=== PATIENT | female | born 1950 | race Two or more races ===

== ENCOUNTER 2021-01-25 14:11 | Inpatient (IN) | payer MEDICARE, OTHER ==
[~2021-01-25] VITALS: Ht 172.7 cm; Wt 52.4 kg
[2021-01-25] MEDS ORDERED: SODIUM CHLORIDE 0.9% 1,000 ML IV ONE (16:45)
[2021-01-25] MEDS ORDERED: MORPHINE SULFATE INJECTION 2 MG/ML SYRG IV ONE (16:45)
[2021-01-25] MEDS ORDERED: ONDANSETRON HCL 4 MG/2 ML VIAL IV ONE (16:45)
[2021-01-25 16:55] LABS: Basophils # (auto) 0.1 10 ^3/uL (0-0.2); Eosinophils # (auto) 0 10 ^3/uL (0-0.8); Eosinophils % (auto) 0.2 % (0.0-7.0); Lymphocytes # (auto) 1.6 10 ^3/uL (0.4-5.4); Monocytes # (auto) 0.8 10 ^3/uL (0-1.3)
[2021-01-25 16:57] LABS: Hematocrit 49.6 % (36.0-46.0); Hemoglobin 16.7 g/dL (12.2-16.2); Lymphocytes % (auto) 12.4 % (10.0-50.0); Mean Corpuscular Hemoglobin 38.5 pg (28.0-32.0); Mean Corpuscular Hgb Conc. 33.6 g/dL (32.0-36.0); Mean Corpuscular Volume 114.6 fL (80.0-100.0); Monocytes % (auto) 6.2 % (0.0-12.0); Neutrophils # (auto) 10.4 10 ^3/uL (1.6-8.6); Neutrophils % (auto) 80.2 % (37.0-80.0); Red Blood Cells 4.33 10^6/uL (4.0-5.20); Red Cell Distribution Width 16.5 % (11.8-14.3); White Blood Cell 12.9 10^3/uL (4.4-10.8)
[2021-01-25 17:14] LABS: INR 1.04 (0.9-1.15); Partial Thromboplastin Time 30.2 sec (23.6-33.0)
[2021-01-25 17:21] LABS: Magnesium 2.1 mg/dL (1.6-2.6); Potassium 3.3 mmol/L (3.5-5.1)
[2021-01-25 17:23] LABS: Bilirubin, Total 0.5 mg/dL (0.2-1.0); Total Protein 8.5 g/dL (6.4-8.2)
[2021-01-25] MEDS ORDERED: POTASSIUM CHL 20 Meq TABLET PO ONE (21:00)
[2021-01-25] MEDS ORDERED: MORPHINE SULFATE INJECTION 2 MG/ML SYRG IV PRN (21:00)
[2021-01-25] MEDS ORDERED: ONDANSETRON HCL 4 MG/2 ML VIAL IV PRN (21:00)
[2021-01-25] MEDS ORDERED: ACETAMINOPHEN 325 MG TAB PO PRN (21:00)
[2021-01-25] MEDS ORDERED: fentaNYL CITRATE 100 MCG/2 ML VL IV ONE (21:15)
[2021-01-25] MEDS ORDERED: TEMAZEPAM 15 MG CAP PO PRN (22:00)
[2021-01-26] VITALS (7 sets, daily range): BP systolic 90–134; BP diastolic 45–76
[2021-01-26] MEDS ORDERED: KETOROLAC TROMETH 30 MG/ML 1ML VIAL IV ONE (01:45)
[2021-01-26] MEDS: HYDROcodone-ACET 5/325MG TAB PO PRN ×3 (02:46→13:29)
[2021-01-26 07:24] LABS: Mean Corpuscular Volume 115.5 fL (80.0-100.0); Monocytes # (auto) 0.9 10 ^3/uL (0-1.3)
[2021-01-26 07:25] LABS: Basophils # (auto) 0.2 10 ^3/uL (0-0.2); Basophils % (auto) 1.5 % (0.0-2.0); Eosinophils # (auto) 0.1 10 ^3/uL (0-0.8); Eosinophils % (auto) 1.3 % (0.0-7.0); Hematocrit 40.4 % (36.0-46.0); Lymphocytes % (auto) 17.3 % (10.0-50.0); Mean Corpuscular Hemoglobin 39.9 pg (28.0-32.0); Mean Corpuscular Hgb Conc. 34.6 g/dL (32.0-36.0); Monocytes % (auto) 7.7 % (0.0-12.0); Neutrophils # (auto) 8.3 10 ^3/uL (1.6-8.6); Neutrophils % (auto) 72.2 % (37.0-80.0); Red Cell Distribution Width 16.4 % (11.8-14.3); White Blood Cell 11.5 10^3/uL (4.4-10.8)
[2021-01-26 07:29] LABS: Urine Bacteria NONE SEEN /hpf (None Seen); Urine Blood Negative /uL (Negative); Urine Hyaline Cast FEW /lpf (0 - 2); Urine Mucus FEW (None Seen); Urine Specific Gravity 1.022 (1.001-1.035); Urine WBC 2 /hpf (0 - 5)
[2021-01-26] MEDS ORDERED: CHOL20007 PO (07:46)
[2021-01-26] MEDS ORDERED: CYA100I PO (07:46)
[2021-01-26 07:51] LABS: Potassium 4.8 mmol/L (3.5-5.1)
[2021-01-26 07:57] LABS: BUN/Creatinine Ratio 26.5; Calcium 8.5 mg/dL (8.5-10.1)
[2021-01-26] MEDS: PANTOPRAZOLE 40 MG TAB PO SCH (09:38)
[2021-01-26] MEDS ORDERED: LORazepam 2MG/ML-1ML VIAL IV PRN (10:45)
[2021-01-26] MEDS ORDERED: NICOTINE 21MG/24 HR TOPICAL PATCH TD ONE (10:45)
[2021-01-26] MEDS ORDERED: LEVO25TA6 PO (14:41)
[2021-01-26] MEDS: HYDROmorphone HCL 2 MG/ML VL IV PRN ×2 (16:04→22:49)
[2021-01-27] VITALS (9 sets, daily range): BP systolic 85–105; BP diastolic 43–63
[2021-01-27] MEDS: HYDROmorphone HCL 2 MG/ML VL IV PRN ×3 (06:04→22:50)
[2021-01-27] MEDS: HYDROcodone-ACET 5/325MG TAB PO PRN (07:56)
[2021-01-27] MEDS ORDERED: SODIUM CHLORIDE 0.9% 1,000 ML IV ONE (09:00)
[2021-01-27] MEDS: PANTOPRAZOLE 40 MG TAB PO SCH (10:00)
[2021-01-27] MEDS: NICOTINE 21MG/24 HR TOPICAL PATCH TD SCH (11:30)
[2021-01-27] MEDS ORDERED: MIDAZOLAM HCL 2MG/2ML 2ml VIAL (1mg/ml) ONE (13:43)
[2021-01-27] MEDS ORDERED: MORPHINE SULF(PF) 0.5MG/ML 10ML VIAL ONE (13:43)
[2021-01-27] MEDS ORDERED: fentaNYL CITRATE 100 MCG/2 ML VL ONE (13:43)
[2021-01-27] MEDS ORDERED: ePHEDrine SULFATE 50 MG/ML AMP ONE (13:45)
[2021-01-27] MEDS ORDERED: ONDANSETRON HCL 4 MG/2 ML VIAL ONE (13:45)
[2021-01-27] MEDS ORDERED: PROPOFOL 10 MG/ML 20 ML IV ONE (13:45)
[2021-01-27] MEDS ORDERED: GLYCOPYRROLATE 0.2 MG/ML 1ML VIAL ONE (13:45)
[2021-01-27] MEDS ORDERED: CLINDAMYCIN 600MG IV 50 ML IV ONE (14:42)
[2021-01-27] MEDS ORDERED: TETRACAINE 1% INJ 2 ML VIAL IJ ONE (14:52)
[2021-01-27] MEDS ORDERED: HYDROmorphone HCL 2 MG/ML VL IV PRN (16:45)
[2021-01-27] MEDS ORDERED: NALOXONE HCL 0.4 MG/ML VIAL IV PRN (16:45)
[2021-01-27] MEDS ORDERED: HYDROcodone-ACET 10/325MG TAB PO PRN (16:45)
[2021-01-27] MEDS: LACTATED RINGER'S 1,000 ML IV SCH ×2 (16:45→22:48)
[2021-01-27] MEDS ORDERED: NALBUPHINE HCL 10 MG/1ml INJECTION SUBCUT ONE (16:45)
[2021-01-27] MEDS ORDERED: ONDANSETRON HCL 4 MG/2 ML VIAL IV PRN (16:45)
[2021-01-27] MEDS ORDERED: diphenhdrAMINE HCL 50 MG/1 ML VL IV PRN (16:45)
[2021-01-27] MEDS ORDERED: DexAMETHasone SOD PHOS 10MG/1ML VIAL INJ IV PRN (16:45)
[2021-01-27] MEDS ORDERED: ACETAMINOPHEN 325 MG TAB PO PRN (16:45)
[2021-01-27] MEDS: CLINDAMYCIN 600MG IV 50 ML IV SCH (22:47)
[2021-01-27] MEDS: SODIUM CHLOR 0.9% PF (SALINE LOCK) 10ML VIAL/SYR IV SCH (22:48)
[2021-01-28] VITALS (24 sets, daily range): BP systolic 71–106; BP diastolic 38–66
[2021-01-28] MEDS: CLINDAMYCIN 600MG IV 50 ML IV SCH (05:00)
[2021-01-28] MEDS: HYDROmorphone HCL 2 MG/ML VL IV PRN (05:07)
[2021-01-28] MEDS: LACTATED RINGER'S 1,000 ML IV SCH ×2 (06:10→22:03)
[2021-01-28] MEDS: SODIUM CHLOR 0.9% PF (SALINE LOCK) 10ML VIAL/SYR IV SCH ×3 (06:25→21:01)
[2021-01-28 06:38] LABS: Basophils # (auto) 0 10 ^3/uL (0-0.2); Basophils % (auto) 0.6 % (0.0-2.0); Eosinophils # (auto) 0.1 10 ^3/uL (0-0.8); Eosinophils % (auto) 1.1 % (0.0-7.0); Hematocrit 33.1 % (36.0-46.0); Hemoglobin 11.1 g/dL (12.2-16.2); Lymphocytes # (auto) 1.3 10 ^3/uL (0.4-5.4); Lymphocytes % (auto) 16.7 % (10.0-50.0); Mean Corpuscular Hemoglobin 39.1 pg (28.0-32.0); Mean Corpuscular Hgb Conc. 33.4 g/dL (32.0-36.0); Mean Corpuscular Volume 117.2 fL (80.0-100.0); Monocytes # (auto) 0.9 10 ^3/uL (0-1.3); Monocytes % (auto) 11.2 % (0.0-12.0); Neutrophils # (auto) 5.5 10 ^3/uL (1.6-8.6); Neutrophils % (auto) 70.4 % (37.0-80.0); Red Blood Cells 2.82 10^6/uL (4.0-5.20); Red Cell Distribution Width 16.6 % (11.8-14.3); White Blood Cell 7.8 10^3/uL (4.4-10.8)
[2021-01-28] MEDS: LEVOTHYROXINE SODIUM 25 MCG TAB PO SCH (06:40)
[2021-01-28 06:58] LABS: Calcium 7.8 mg/dL (8.5-10.1); Potassium 3.8 mmol/L (3.5-5.1)
[2021-01-28 07:01] LABS: BUN/Creatinine Ratio 32.1
[2021-01-28 09:59] LABS: Eosinophils # (auto) 0 10 ^3/uL (0-0.8); Mean Corpuscular Volume 117.9 fL (80.0-100.0)
[2021-01-28 10:00] LABS: Basophils # (auto) 0.1 10 ^3/uL (0-0.2); Basophils % (auto) 1.2 % (0.0-2.0); Eosinophils % (auto) 0.5 % (0.0-7.0); Hematocrit 35.4 % (36.0-46.0); Hemoglobin 11.8 g/dL (12.2-16.2); Lymphocytes # (auto) 1.2 10 ^3/uL (0.4-5.4); Lymphocytes % (auto) 15.7 % (10.0-50.0); Mean Corpuscular Hemoglobin 39.3 pg (28.0-32.0); Mean Corpuscular Hgb Conc. 33.3 g/dL (32.0-36.0); Monocytes # (auto) 0.9 10 ^3/uL (0-1.3); Monocytes % (auto) 11.3 % (0.0-12.0); Neutrophils # (auto) 5.5 10 ^3/uL (1.6-8.6); Neutrophils % (auto) 71.3 % (37.0-80.0); Red Cell Distribution Width 16.4 % (11.8-14.3); White Blood Cell 7.7 10^3/uL (4.4-10.8)
[2021-01-28] MEDS: ENOXAPARIN SOD 40 MG/0.4 ML SYRINGE SC SCH (10:31)
[2021-01-28] MEDS: PANTOPRAZOLE 40 MG TAB PO SCH (10:31)
[2021-01-28] MEDS: NICOTINE 21MG/24 HR TOPICAL PATCH TD SCH (10:32)
[2021-01-28] MEDS: HYDROcodone-ACET 5/325MG TAB PO PRN ×2 (14:59→23:27)
[2021-01-29 05:13] VITALS: BP 140/72
[2021-01-29] MEDS: SODIUM CHLOR 0.9% PF (SALINE LOCK) 10ML VIAL/SYR IV SCH ×3 (05:17→21:28)
[2021-01-29] MEDS: LEVOTHYROXINE SODIUM 25 MCG TAB PO SCH (06:05)
[2021-01-29 08:15] VITALS: BP 100/52
[2021-01-29 08:30] VITALS: BP 100/52
[2021-01-29] MEDS: LACTATED RINGER'S 1,000 ML IV SCH ×2 (08:52→18:24)
[2021-01-29] MEDS: PANTOPRAZOLE 40 MG TAB PO SCH (09:54)
[2021-01-29] MEDS: HYDROcodone-ACET 5/325MG TAB PO PRN ×2 (09:55→16:56)
[2021-01-29] MEDS: ENOXAPARIN SOD 40 MG/0.4 ML SYRINGE SC SCH (09:55)
[2021-01-29] MEDS: NICOTINE 21MG/24 HR TOPICAL PATCH TD SCH (09:55)
[2021-01-29 12:59] VITALS: BP 110/69
[2021-01-29 17:00] VITALS: BP 108/64
[2021-01-29] MEDS: HYDROmorphone HCL 2 MG/ML VL IV PRN (21:27)
[2021-01-29 22:00] VITALS: BP 143/88
[2021-01-30 05:00] VITALS: BP 132/69
[2021-01-30] MEDS: LEVOTHYROXINE SODIUM 25 MCG TAB PO SCH (06:22)
[2021-01-30] MEDS: SODIUM CHLOR 0.9% PF (SALINE LOCK) 10ML VIAL/SYR IV SCH ×2 (06:22→15:00)
[2021-01-30] MEDS: LACTATED RINGER'S 1,000 ML IV SCH (06:54)
[2021-01-30] MEDS: HYDROcodone-ACET 5/325MG TAB PO PRN ×2 (06:55→12:26)
[2021-01-30 09:00] VITALS: BP 96/54
[2021-01-30] MEDS: NICOTINE 21MG/24 HR TOPICAL PATCH TD SCH (09:13)
[2021-01-30] MEDS: PANTOPRAZOLE 40 MG TAB PO SCH (09:14)
[2021-01-30] MEDS: ENOXAPARIN SOD 40 MG/0.4 ML SYRINGE SC SCH (09:15)
[2021-01-30] MEDS ORDERED: CALCIUM W/VIT D (600MG/400IU) TAB PO ONE (10:00)
[2021-01-30 13:00] VITALS: BP 114/67
[2021-01-30 17:00] VITALS: BP 116/72
[2021-01-30 17:01] VITALS: BP 114/67
[2021-01-30] MEDS ORDERED: CALCIUM W/VIT D (600MG/400IU) TAB PO SCH (18:00)
[2021-01-30] MEDS ORDERED: Ensure Enlive Strawberry 8oz Bottle PO SCH (18:00)
== END 2021-01-30 20:47 | disposition home health service (06) | DRG 481 ==
LOC: EDBD 14:11 → ER 14:11 → OVERFLOW 20:55 → WEST WING 01-26 02:26
PROVIDERS: ADMIT Nurse Practitioner; ATTEND Internal Medicine
PROC: B41G1ZZ Fluoroscopy of Left Lower Extremity Arteries using Low Osmolar Contrast (ICD-10-PCS; 2021-01-27)
PROC: 0QS736Z Reposition Left Upper Femur with Intramedullary Internal Fixation Device, Percutaneous Approach (ICD-10-PCS; principal; 2021-01-27 14:52)
DX: M80.052A Age-related osteoporosis with current pathological fracture, left femur, initial encounter for fracture (principal); E44.0 Moderate protein-calorie malnutrition; Z68.1 Body mass index [BMI] 19.9 or less, adult; R64 Cachexia; J96.10 Chronic respiratory failure, unspecified whether with hypoxia or hypercapnia; E87.6 Hypokalemia; I10 Essential (primary) hypertension; J43.9 Emphysema, unspecified; W01.0XXA Fall on same level from slipping, tripping and stumbling without subsequent striking against object, initial encounter; Z20.822 Contact with and (suspected) exposure to COVID-19; F17.200 Nicotine dependence, unspecified, uncomplicated; F41.9 Anxiety disorder, unspecified; Z80.3 Family history of malignant neoplasm of breast; Z80.7 Family history of other malignant neoplasms of lymphoid, hematopoietic and related tissues; Z82.3 Family history of stroke; Z82.49 Family history of ischemic heart disease and other diseases of the circulatory system; Z88.0 Allergy status to penicillin; Z71.6 Tobacco abuse counseling; Y93.89 Activity, other specified; Y92.098 Other place in other non-institutional residence as the place of occurrence of the external cause; Y99.8 Other external cause status
CPT/HCPCS: 36415; 71045; 73502; 80048; 80053; 81001; 83735; 84439; 84443; 85025; 85610; 85730; 87426; 93005; 96361; 96374; 96375; 97110; 97116; 97163; 97530; A4565; C1713; G0378; J1885; J2250; J2405; J2704; J3490